=== PATIENT | male | born 1960 | race Caucasian/White ===

== ENCOUNTER 2017-02-24 11:15 | Day surgery (SDC) | payer OTHER ==
[~2017-02-24 11:15] MED LIST: ATOR40TA49 PO; DILT240C7 PO; DOFE250 PO; FISH1000 PO; GLUCTAB PO; MAGN400T PO; POTA-71 XX; TOPR50TA PO; VITA100017 PO; VITA10002 PO; WARF1TAB PO; WARF7.5 PO
[2017-02-24] MEDS ORDERED: SODIUM CHLORID 0.9% 500 ML IV PRN (11:45)
[2017-02-24] MEDS ORDERED: CHLORHEXIDINE GLUCONATE 2 % 1 PACK (2 CLOTHS) TOPICAL PRN (11:45)
[2017-02-24] MEDS ORDERED: POVIDONE IODINE 5% (ANTISEPSIS KIT) 4 APPLICATIONS EACH NARE PRN (11:45)
[2017-02-24] MEDS ORDERED: INSULIN HUMAN REGULAR 1,000 UNITS/10 ML VIAL SQ PRN (11:45)
[2017-02-24] MEDS ORDERED: METOPROLOL TARTRATE 25 MG TAB PO PRN (11:45)
[2017-02-24] MEDS ORDERED: LACTATED RINGER'S 1000 ML IV PRN (11:45)
[2017-02-24] MEDS ORDERED: PROPOFOL 200 MG/20 ML AMP IV ONE (12:00)
[2017-02-24] MEDS ORDERED: MAGN250T11 PO (12:09)
[2017-02-24] MEDS ORDERED: VITA100064 PO (12:09)
[2017-02-24] MEDS ORDERED: VITA10007 PO (12:09)
[2017-02-24] MEDS ORDERED: WARF-22 PO (12:09)
[2017-02-24] MEDS ORDERED: METO100T PO (12:09)
[2017-02-24] MEDS ORDERED: DILT1TAB4 PO (12:09)
[2017-02-24] MEDS ORDERED: ATOR40TA16 PO (12:09)
[2017-02-24] MEDS ORDERED: FISH1000 (12:09)
[2017-02-24] MEDS ORDERED: AMIO200T PO (12:09)
[2017-02-24] MEDS ORDERED: WARF-21 PO (12:09)
[2017-02-24] MEDS ORDERED: METF500T PO (12:09)
[2017-02-24] MEDS ORDERED: POTA550T2 (12:09)
[2017-02-24] MEDS ORDERED: VITATAB11 (12:09)
--- NOTE | 2017-02-26 21:35 | EKG ---
Date Performed: 02/24/2017 Time Performed: 14:43:46 PTAGE: 56 years EKG: Sinus rhythm with PAC(s). Anterior T wave changes are nonspecific Borderline ECG PREVIOUS TRACING : 02/24/2017 11.51 DOCTOR: Steve Robertson Interpretating Date/Time 02/26/2017 21:32:40
--- NOTE | 2017-02-26 21:39 | EKG ---
Date Performed: 02/24/2017 Time Performed: 11:51:36 PTAGE: 56 years EKG: Atrial fibrillation. Poor R wave progression - probable normal variant Inferior and anterio r T wave changes are nonspecific Abnormal ECG PREVIOUS TRACING : 10/13/2015 11.44 DOCTOR: Steve Robertson Interpretating Date/Time 02/26/2017 21:34:02
--- NOTE | 2017-02-28 18:00 | CF ---
cc: HERBIE LOZOYA M.D., RENA M. M.D. Date: 02/24/2017 PROCEDURE: 1. Transesophageal echocardiogram. 2. Cardioversion. INDICATIONS: 1. Recurrent atrial fibrillation. 2. Mitral regurgitation. 3. Tricuspid regurgitation. 4. Multiple (five ablations). CONSENT A full, informed consent was obtained prior to the procedure. The risks of , bleeding, myocardial infarction, perforation, aspiration, foreseen and unforeseen complications were reviewed. The patient fully appeared to understand the risks. PROCEDURE The patient was prepped and draped in the usual manner. Anesthesia was given per the Anesthesia Department. A full POLO was performed. FINDINGS There was evidence of moderate mitral regurgitation. LV function was normal. The left atrium was mildly enlarged, the left atrial appendage was free of thrombus. The right atrium was markedly enlarged. There is evidence of moderate tricuspid regurgitation, the right ventricular function was normal. The aorta was visualized to 40 cm and had some mild plaquing. CONCLUSION No left atrial appendage thrombus. Moderate mitral and tricuspid regurgitation, significant right atrial enlargement, probable sleep apnea induced pulmonary hypertension with right atrial enlargement, probable cause of A-fib. PLAN Proceed with cardioversion. Herbie Lozoya MD, FRCP,[facility] /2:39 PM /5:39 PM
--- NOTE | 2017-02-28 18:28 | MP ---
cc: ROBYN ROBLES HUMAYUN A. M.D. DATE OF SURGERY: 02/24/2017 PROCEDURE: Cardioversion. INDICATION FOR CARDIOVERSION: Atrial fibrillation. NOTE The patient had a POLO, following this had a cardioversion. CONSENT A full, informed consent was obtained prior to the procedure. The risks of , bleeding, cardiac arrest, stroke, foreseen and unforeseen complications were reviewed. The patient fully appeared to understand the procedure. PROCEDURE NOTE The patient was draped and prepped in the usual manner. A full POLO was performed. Following the POLO, we decided to proceed with cardioversion. The patient was given a 200 joule synchronized shock and he did not convert. Following this he had a 360 joule shock which converted to sinus rhythm. CONCLUSION Successful cardioversion to sinus rhythm. PLAN Continued medical management. Herbie Lozoya MD, CP,[facility]/[place] /2:41 PM /5:39 PM
== END 2017-02-24 15:40 | disposition home or self-care (01) ==
LOC: HSDC 11:15 → HDIC 11:17 → HSDC 15:40
PROVIDERS: ATTEND Internal Medicine Cardiovascular Disease
DX: I48.91 Unspecified atrial fibrillation (principal); I34.0 Nonrheumatic mitral (valve) insufficiency; I10 Essential (primary) hypertension; E78.5 Hyperlipidemia, unspecified; E11.9 Type 2 diabetes mellitus without complications; G47.30 Sleep apnea, unspecified; Z79.01 Long term (current) use of anticoagulants; Z79.84 Long term (current) use of oral hypoglycemic drugs
CPT/HCPCS: 92960; 93005; 93312; 93320; 93325